=== PATIENT | female | born 1990 | race Caucasian/White ===

== ENCOUNTER 2017-02-14 12:31 | Outpatient (CLI) | payer OTHER ==
--- NOTE | 2017-02-14 14:24 | DIAGNOSTIC IMAGING REPORT ---
PROCEDURE: US OB 1ST TRIMESTER W/TRANSVAG INDICATION: AMENORRHEA TECHNIQUE: Chris scale, color, and spectral Doppler transabdominal and endovaginal sonographic images of the first trimester gravid uterus were obtained. COMPARISON: None. FINDINGS: TRANSABDOMINAL SCANS: The uterus is anteverted anteflexed in position. No obvious intrauterine fluid collection. Images of the adnexa by transabdominal imaging were unremarkable. Incidental note made of hepatic steatosis. TRANSVAGINAL SCANS: The cervix is closed and measures about 4.8 cm in length. The myometrium is homogeneous. Incidental note made of prior scar in the anterior lower uterine segment. The endometrium is about 10 mm in thickness. There is minor cystic change within the endometrium at the fundus. No focal endometrial fluid collection to suggest gestational sac. The right ovary measures 4.9 x 1.8-3.1 cm and has a normal follicular echotexture, arterial, and venous flow. The left ovary measures 3.5 x 2.2 x 3.0 cm and also has a normal echotexture and vascularity. Approximately 1 cm from the ovary there is a thin-walled simple appearing 1.4 cm focal fluid collection without surrounding or internal vascular flow. No free fluid in the pelvis. No suspicious adnexal masses. IMPRESSION: 1. Minor cystic change within the normal caliber fundal endometrium. No intrauterine detected. Correlate with Beta hCG levels. 2. Normal ovaries. 3. 1.4 cm left adnexal simple cyst. 4. Discussed with Dr. Ontiveros.
== END 2017-02-14 23:00 | disposition home or self-care (01) ==
LOC: US SRH 12:31
DX: N83.202 Unspecified ovarian cyst, left side (principal)